=== PATIENT | male | born 1960 | race Caucasian/White ===

== ENCOUNTER 2021-08-27 02:31 | Observation (INO) ==
[2021-08-27] MEDS ORDERED: Acetaminophen 325 MG TABLET PO PRN (07:21)
[2021-08-27] MEDS ORDERED: Melatonin 3 MG TABLET PO PRN (07:21)
[2021-08-27] MEDS ORDERED: Ondansetron 4 MG/2 ML VIAL IVP PRN (07:21)
[2021-08-27 07:39] VITALS: O2SAT 95
[2021-08-27 08:54] LABS: Hematocrit 24.9 % (37.5-50.1); Hemoglobin 7.9 g/dL (12.9-16.9); Mean Corpuscular HGB Conc 31.7 g/dL (31.6-35.5); Mean Corpuscular Hemoglobin 21.9 pg (28.0-33.3); Mean Corpuscular Volume 69.2 fL (83.0-100.0); Mean Platelet Volume 10.2 fL (9.4-12.4); Platelet Count 145 K/mcL (140-400); Red Cell Distribution Width 22.2 % (11.5-14.5); White Blood Count 3.7 K/mcL (4.3-11.1)
[2021-08-27] MEDS ORDERED: Thiamine (B-1) 100 MG TABLET PO SCH (09:00)
[2021-08-27] MEDS ORDERED: Folic Acid 1 MG TABLET PO SCH (09:00)
[2021-08-27 09:08] LABS: INR 1.1; Prothrombin Time 12.6 Seconds (9.4-12.1)
[2021-08-27 09:12] LABS: Alanine Aminotransferase 64 Units/L (7-52); Albumin 3.1 g/dL (3.5-5.7); Albumin/Globulin Ratio 0.9 (1.1-2.2); Alkaline Phosphatase 175 Units/L (34-104); Aspartate Amino Transferase 157 Units/L (13-39); BUN/Creatinine Ratio 6 (6-26); Bilirubin,Total 0.9 mg/dL (0.3-1.0); Blood Urea Nitrogen 5 mg/dL (6-20); Calcium 8.2 mg/dL (8.6-10.3); Carbon Dioxide 25 mEq/L (23-29); Chloride 93 mEq/L (98-107); Globulin 3.5 g/dL (2.4-3.5); Glucose 95 mg/dL (70-105); Magnesium 1.4 mg/dL (1.6-2.6); Osmolality,Calculated 263 (280-300); Phosphorous 3.4 mg/dL (2.7-4.5); Potassium 3.8 mEq/L (3.5-5.1); Sodium 128 mEq/L (136-145); Total Protein 6.6 g/dL (6.4-8.9); eGFR For African Americans > 60 (> 60); eGFR For Non-African Americans > 60 (> 60)
[2021-08-27 10:19] VITALS: BP 136/81; PULSE 91; TEMP 98.1
== END 2021-08-27 14:05 | disposition home or self-care (01) ==
LOC: 3BNU → SUATTDRO 06:56
PROVIDERS: ADMIT Internal Medicine; ATTEND Internal Medicine